=== PATIENT | male | born 1995 | race Caucasian/White ===

== ENCOUNTER → 2024-12-05 12:54 | Outpatient (BNVA) | payer OTHER, SELFPAY | PROVIDERS: Visit Provider Physician Assistant | DX: T54.2X1A Toxic effect of corrosive acids and acid-like substances, accidental (unintentional), initial encounter (principal); R42 Dizziness and giddiness; Y92.63 Factory as the place of occurrence of the external cause | CPT/HCPCS: 99204 ==